=== PATIENT | female | born 1995 | race Asian ===

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

== ENCOUNTER → 2017-01-18 | Outpatient (REF) | LOC: COL.EMP 09:14 | DX: Z02.1 Encounter for pre-employment examination (principal) ==

== ENCOUNTER 2017-04-29 13:45 | Emergency (ER) | payer OTHER ==
[~2017-04-29] VITALS: Ht 160 cm; Wt 77.7 kg
[2017-04-29 13:47] VITALS: BP 127/97; TEMP 98.8
[2017-04-29] MEDS ORDERED: BIRTH CONTROL PO (13:51)
[2017-04-29 14:44] VITALS: PULSE 78
== END 2017-04-29 14:45 | disposition home or self-care (01) ==
LOC: COL.ER 13:45
DX: S39.012A Strain of muscle, fascia and tendon of lower back, initial encounter (principal); M54.2 Cervicalgia; S90.02XA Contusion of left ankle, initial encounter; V13.4XXA Pedal cycle driver injured in collision with car, pick-up truck or van in traffic accident, initial encounter; Y92.414 Local residential or business street as the place of occurrence of the external cause

== ENCOUNTER 2017-05-06 18:31 | Emergency (ER) | payer OTHER ==
[~2017-05-06] VITALS: Ht 160 cm; Wt 77.7 kg
[~2017-05-06 18:31] MED LIST changes: -NORCO 325 MG-51 TAB PO
[2017-05-06 18:47] VITALS: BP 120/75; TEMP 99.6
[2017-05-06] MEDS ORDERED: NORCO 325 MG-51 TAB PO (20:28)
[2017-05-06 20:38] VITALS: PULSE 69
== END 2017-05-06 20:38 | disposition home or self-care (01) ==
LOC: COL.ER 18:31
DX: S39.012A Strain of muscle, fascia and tendon of lower back, initial encounter (principal); V13.4XXA Pedal cycle driver injured in collision with car, pick-up truck or van in traffic accident, initial encounter
CPT/HCPCS: J1885; J2360

== ENCOUNTER → 2017-06-22 | Outpatient (REF) ==
[~2017-06-22] MED LIST changes: +NORCO 325 MG-51 TAB PO
== END ==
LOC: WSOH 11:45
DX: Z02.89 Encounter for other administrative examinations (principal)